=== PATIENT | female | born 1965 | race Caucasian/White ===

== ENCOUNTER 2017-01-18 10:05 | Emergency (ER) | payer MEDICAID, OTHER ==
[~2017-01-18] VITALS: Ht 167.6 cm; Wt 72.6 kg
--- NOTE | 2017-01-18 10:15 | NUR ---
PT CAME IN FOR DIZZINESS X 2 DAYS. TAKES AMOXICILLIN 500MG PO TID S/P DENTAL PROCEDURE. REPORTS FEELING DEHYDRATED. MD AT BS FOR EVAL. VSS. SAFETY AND COMFORT MEASURES PROVIDED. WILL MONITOR.
[2017-01-18] MEDS ORDERED: IV NS 0.9% 1,000 ML ONE (10:41)
[2017-01-18] MEDS ORDERED: IV SET PRIMARY 1 EA INFUS.SET MC ONE (10:41)
--- NOTE | 2017-01-18 10:50 | NUR ---
IV ACCESS STARTED, BLOOD DRAWN FOR LABS. PT MEDICATED ORDERED.
[2017-01-18 10:53] LABS: BASOPHILS % (AUTO) 0.7 % (0.0-2.0); EOSINOPHILS % (AUTO) 0.6 % (0.0-6.0); HEMATOCRIT 41 % (33-45); HEMOGLOBIN 13.5 g/dL (11.5-14.8); MEAN CORPUSCULAR HEMOGLOBIN 29 PG (26.0-33.0); MEAN CORPUSCULAR HGB CONC 33 g/dl (31.0-36.0); MEAN CORPUSCULAR VOLUME 86 fL (82-100); MONOCYTES # (AUTO) 0.4 /CMM (0.1-1.30); MONOCYTES % (AUTO) 7.4 % (2.0-12.0); NEUTROPHILS # (AUTO) 2.5 /CMM (1.8-8.9); NEUTROPHILS % (AUTO) 50.3 % (43.0-81.0); PLATELET COUNT (AUTO) 244 /CMM (150-450); RDW COEFFICIENT OF VARIATION 12.3 (11.5-15.0); WHITE BLOOD COUNT (AUTO) 4.9 K/uL (4.3-11.0)
--- NOTE | 2017-01-18 10:55 | NUR ---
URINE SAMPLE OBTAINED, SENT.
[2017-01-18 10:58] LABS: APPEARANCE,URINE Clear (CLEAR); BILIRUBIN,URINE Negative (NEGATIVE); BLOOD, URINE Negative Ery/uL (NEGATIVE); COLOR,URINE Yellow (YELLOW); KETONES,URINE Negative (NEGATIVE); LEUKOCYTE ESTERASE ,URINE Negative (NEGATIVE); NITRITE, URINE Negative (NEGATIVE); PROTEIN,URINE Negative (NEGATIVE); UGLUCOSE Negative (NEGATIVE); UROBILINOGEN,URINE 0.2 EU/dL (0.2)
[2017-01-18] MEDS ORDERED: IV NS 0.9% 1,000 ML BAG IV ONE (11:00)
[2017-01-18 11:06] LABS: CREATININE 0.9 mg/dL (0.6-1.3); POTASSIUM 4.5 mmol/L (3.5-5.1)
--- NOTE | 2017-01-18 11:45 | NUR ---
IV removed. Catheter intact and site benign. Pressure and 4x4 applied to site. No bleeding noted.
--- NOTE | 2017-01-18 11:56 | NUR ---
Patient discharged to home in stable condition. Written and verbal after care instructions given. Patient verbalizes understanding of instruction.
[2017-01-18 12:04] VITALS: BP 131/79
== END 2017-01-18 12:05 | disposition home or self-care (01) ==
LOC: ER 10:07
DX: E86.0 Dehydration (principal); R42 Dizziness and giddiness; Z88.1 Allergy status to other antibiotic agents; Z88.2 Allergy status to sulfonamides
CPT/HCPCS: 36415; 80048-TC; 81000-TC; 85025-TC; A4606; J7030; Z7610

== ENCOUNTER 2018-05-04 15:54 | Emergency (ER) | payer OTHER ==
[~2018-05-04] VITALS: Ht 167.6 cm; Wt 73.9 kg
[2018-05-04 16:10] VITALS: BP 125/92
[2018-05-04] MEDS ORDERED: FAMOTIDINE (20 MG) 20 MG TABLET ONE (16:30)
[2018-05-04] MEDS ORDERED: predniSONE 20 MG TABLET ONE (16:30)
[2018-05-04] MEDS ORDERED: predniSONE 20 MG TABLET PO ONE (16:30)
[2018-05-04] MEDS ORDERED: FAMOTIDINE (20 MG) 20 MG TABLET PO ONE (16:30)
== END 2018-05-04 16:46 | disposition home or self-care (01) ==
LOC: ER 15:55
DX: L23.5 Allergic contact dermatitis due to other chemical products (principal); B35.1 Tinea unguium; Z88.2 Allergy status to sulfonamides; Z88.1 Allergy status to other antibiotic agents
CPT/HCPCS: 99283; A4606; J7512; Z7610

== ENCOUNTER 2018-09-13 12:51 | Emergency (ER) | payer OTHER ==
[~2018-09-13] VITALS: Ht 167.6 cm; Wt 77.6 kg
[2018-09-13 13:04] VITALS: BP 137/91
--- NOTE | 2018-09-13 13:55 | NUR ---
RT PAGED FOR BREATHING TX
[2018-09-13] MEDS ORDERED: IPRATROPIUM NEB FS 0.5 MG/2.5 ML AMPUL.NEB NEB ONE (14:00)
[2018-09-13] MEDS ORDERED: ALBUTEROL FS 2.5 MG/3 ML VIAL.NEB NEB ONE (14:00)
[2018-09-13] MEDS ORDERED: IPRATROPIUM NEB FS 0.5 MG/2.5 ML AMPUL.NEB ONE (14:09)
[2018-09-13] MEDS ORDERED: ALBUTEROL FS 2.5 MG/3 ML VIAL.NEB ONE (14:09)
== END 2018-09-13 15:28 | disposition home or self-care (01) ==
LOC: ER 12:55
DX: J20.9 Acute bronchitis, unspecified (principal); Z88.2 Allergy status to sulfonamides; Z88.1 Allergy status to other antibiotic agents
CPT/HCPCS: 71045; 94640 ×2; 99284; A4606; Z7610

== ENCOUNTER 2018-11-22 08:07 | Emergency (ER) | payer OTHER ==
[~2018-11-22] VITALS: Ht 170.2 cm; Wt 77.1 kg
[2018-11-22] MEDS ORDERED: KETOROLAC TROMETHAMINE INJ 30 MG/ML VIAL ONE (08:23)
--- NOTE | 2018-11-22 08:32 | NUR ---
patient presented to the ER c/o cough with congestion x 2 days. On room air, breathing evenly and unlabored. Connected to the monitor and pulse ox. kept comfortable, will continue to monitor accordingly.
[2018-11-22 08:47] VITALS: BP 138/91
--- NOTE | 2018-11-22 08:48 | NUR ---
Patient discharged to home in stable condition. Written and verbal after care instructions given. Patient verbalizes understanding of instruction.
[2018-11-22] MEDS ORDERED: KETOROLAC TROMETHAMINE INJ 60 MG/2 ML VIAL IM ONE (09:00)
== END 2018-11-22 08:47 | disposition home or self-care (01) ==
LOC: ER 08:07
DX: J06.9 Acute upper respiratory infection, unspecified (principal); Z88.2 Allergy status to sulfonamides; Z88.1 Allergy status to other antibiotic agents
CPT/HCPCS: 96372; 99283; A4606; J1885

== ENCOUNTER 2022-02-08 10:39 | Emergency (ER) | payer OTHER ==
[~2022-02-08] VITALS: Ht 170.2 cm; Wt 72.1 kg
--- NOTE | 2022-02-08 10:48 | NUR ---
TO ER BED 3. BIB MOM C/O DIZZINESS SINCE 819 THIS MORNING. PT STATED THAT THIS HAPPENED EALRIER THIS WEEK AND STATED THAT SHE HAS NOT BEEN GETTING ENOUGH FLUID. PT STATED SHE DOES NOT FEEL DIZZY AT THE MOMENT AFTER LAYING DOWN. PT ATTCHED TO MONITOR. AWAITING MD NORTH.
--- NOTE | 2022-02-08 10:53 | NUR ---
DR NOLAN AT BEDSIDE FOR EVAL.
--- NOTE | 2022-02-08 11:12 | NUR ---
IV ESTBLISHED L AC 20G. LABS DRAWN AND COLLECTED AT BEDSIDE.
[2022-02-08] MEDS: IV NS 0.9% 1,000 ML BAG IV ONE (11:17)
[2022-02-08 11:27] LABS: BASOPHILS % (AUTO) 0.7 % (0.0-2.0); EOSINOPHILS % (AUTO) 0.5 % (0.0-6.0); HEMATOCRIT 38 % (33-45); LYMPHOCYTES # (AUTO) 1.4 K/uL (0.8-4.8); LYMPHOCYTES % (AUTO) 32.5 % (20.0-44.0); MEAN CORPUSCULAR HGB CONC 34 g/dl (31.0-36.0); MEAN CORPUSCULAR VOLUME 86 fL (82-100); MONOCYTES # (AUTO) 0.3 K/uL (0.1-1.30); MONOCYTES % (AUTO) 7.9 % (2.0-12.0); NEUTROPHILS # (AUTO) 2.6 K/uL (1.8-8.9); NEUTROPHILS % (AUTO) 58.4 % (43.0-81.0); PLATELET COUNT (AUTO) 219 K/uL (150-450); RED BLOOD CELL COUNT(AUTO) 4.42 MIL/uL (4.0-5.2); WHITE BLOOD COUNT (AUTO) 4.4 K/uL (4.3-11.0)
[2022-02-08 11:41] LABS: CALCIUM, SERUM 8.7 mg/dL (8.5-10.1); CARBON DIOXIDE 32 mmol/L (21-32); CHLORIDE 105 mmol/L (98-107); GLUCOSE 90 mg/dL (74-106); POTASSIUM 4.2 mmol/L (3.5-5.1); SODIUM SERUM 141 mmol/L (136-145); UREA NITROGEN, BLOOD 16 mg/dL (7-18)
[2022-02-08 12:40] VITALS: BP 130/88
--- NOTE | 2022-02-08 12:59 | NUR ---
IV removed. Catheter intact and site benign. Pressure and 4x4 applied to site. No bleeding noted.Patient discharged to home in stable condition. Written and verbal after care instructions given. Patient verbalizes understanding of instruction.
== END 2022-02-08 13:00 | disposition home or self-care (01) ==
LOC: ER 10:50
DX: R42 Dizziness and giddiness (principal); R55 Syncope and collapse; Z88.2 Allergy status to sulfonamides; Z88.1 Allergy status to other antibiotic agents; Z91.040 Latex allergy status
CPT/HCPCS: 36415; 71045; 80048; 82962; 84484; 85025; 93005; 96360; 99285; J7030

== ENCOUNTER 2022-12-21 17:04 | Emergency (ER) | payer OTHER ==
[~2022-12-21] VITALS: Ht 170.2 cm; Wt 74.8 kg
[2022-12-21 17:17] VITALS: BP 146/68
[2022-12-21] MEDS ORDERED: AZIT250T PO (17:28)
[2022-12-21] MEDS ORDERED: BENZ-13 PO (17:28)
[2022-12-21] MEDS ORDERED: IBUP-1953 PO (17:28)
[2022-12-21] MEDS ORDERED: PSEU120T83 PO (17:28)
--- NOTE | 2022-12-21 17:47 | NUR ---
Patient discharged to home in stable condition. Written and verbal after care instructions given. Patient verbalizes understanding of instruction.
== END 2022-12-21 17:49 | disposition home or self-care (01) ==
LOC: ER 17:11
DX: J06.9 Acute upper respiratory infection, unspecified (principal); H66.92 Otitis media, unspecified, left ear; Z88.1 Allergy status to other antibiotic agents; Z91.040 Latex allergy status

== ENCOUNTER 2023-02-02 16:02 | Emergency (ER) | payer OTHER ==
[~2023-02-02] VITALS: Ht 167.6 cm; Wt 74.8 kg
[~2023-02-02 16:02] MED LIST: AZIT250T PO; BENZ-13 PO; IBUP-1953 PO; PSEU120T83 PO
[2023-02-02 16:36] VITALS: BP 129/91
[2023-02-02] MEDS ORDERED: CLOT15CR27 TP (16:46)
== END 2023-02-02 16:51 | disposition home or self-care (01) ==
LOC: ER 16:03
DX: B35.1 Tinea unguium (principal); Z88.2 Allergy status to sulfonamides; Z88.8 Allergy status to other drugs, medicaments and biological substances

== ENCOUNTER 2023-09-06 10:23 | Emergency (ER) | payer OTHER ==
[~2023-09-06] VITALS: Ht 167.6 cm; Wt 77.1 kg
[~2023-09-06 10:23] MED LIST changes: +CLOT15CR27 TP
[2023-09-06 11:38] VITALS: BP 139/80; TEMP 98.2
[2023-09-06] MEDS ORDERED: GUAIFENESIN/D-METHORPHAN HB 5 ML UDC PO ONE (13:30)
[2023-09-06] MEDS ORDERED: ACETAMINOPHEN ES 500 MG TABLET PO ONE (13:30)
[2023-09-06] MEDS ORDERED: IBUPROFEN 400 MG TABLET PO ONE (13:30)
[2023-09-06] MEDS ORDERED: ACETAMINOPHEN ES 500 MG TABLET ONE (13:45)
[2023-09-06] MEDS ORDERED: IBUPROFEN 400 MG TABLET ONE (13:45)
[2023-09-06] MEDS ORDERED: GUAIFENESIN/D-METHORPHAN HB 5 ML UDC ONE (13:45)
[2023-09-06] MEDS ORDERED: GUAI1TBM19 PO (14:15)
[2023-09-06] MEDS ORDERED: AZIT500T PO (14:15)
[2023-09-06] MEDS ORDERED: BENZ-13 PO (14:15)
[2023-09-06 15:26] VITALS: O2SAT 98
== END 2023-09-06 14:21 | disposition home or self-care (01) ==
LOC: ER 10:26
DX: J06.9 Acute upper respiratory infection, unspecified (principal); R07.89 Other chest pain; Z79.899 Other long term (current) drug therapy; Z20.822 Contact with and (suspected) exposure to COVID-19; Z88.1 Allergy status to other antibiotic agents; Z88.2 Allergy status to sulfonamides
CPT/HCPCS: 99284; 71045; 87426; 87804 ×2; C9803

== ENCOUNTER 2024-03-03 19:58 | Emergency (ER) | payer OTHER ==
[~2024-03-03] VITALS: Ht 167.6 cm; Wt 74.8 kg
[~2024-03-03 19:58] MED LIST changes: +AZIT500T PO; +GUAI1TBM19 PO
[2024-03-03] MEDS ORDERED: CLIN300C12 PO (21:45)
[2024-03-03] MEDS ORDERED: HYDR-4209 PO (21:45)
[2024-03-03] MEDS ORDERED: KETO10TA2 PO (21:45)
[2024-03-03] MEDS ORDERED: oxyCODONE/APAP (5/325 MG) 1 UDTAB TABLET ONE (21:45)
[2024-03-03] MEDS ORDERED: BACI500P4 TP (21:45)
[2024-03-03] MEDS: oxyCODONE/APAP (5/325 MG) 1 UDTAB TABLET PO ONE (21:49)
[2024-03-03 21:57] VITALS: BP 134/78; TEMP 97.9; O2SAT 97
== END 2024-03-03 21:57 | disposition home or self-care (01) ==
LOC: ER 20:02
DX: T23.401A Corrosion of unspecified degree of right hand, unspecified site, initial encounter (principal); T23.402A Corrosion of unspecified degree of left hand, unspecified site, initial encounter; Z79.899 Other long term (current) drug therapy; Z88.2 Allergy status to sulfonamides; Y93.89 Activity, other specified; Y92.89 Other specified places as the place of occurrence of the external cause; Y99.8 Other external cause status

== ENCOUNTER 2025-08-26 16:36 | Emergency (ER) | payer OTHER ==
[~2025-08-26] VITALS: Ht 167.6 cm; Wt 86.2 kg
[~2025-08-26 16:36] MED LIST changes: +BACI500P4 TP; +CLIN300C12 PO; +HYDR-4209 PO; +KETO10TA2 PO
[2025-08-26] MEDS: IV NS 0.9% 1,000 ML BAG IV ONE (17:15)
[2025-08-26] MEDS: ONDANSETRON HCL/PF 4 MG/2 ML VIAL IVP ONE (17:16)
[2025-08-26] MEDS: KETOROLAC TROMETHAMINE 15 MG/ML VIAL IV ONE (17:17)
[2025-08-26] MEDS ORDERED: KETOROLAC TROMETHAMINE 15 MG/ML VIAL ONE (17:18)
[2025-08-26] MEDS ORDERED: ONDANSETRON HCL/PF 4 MG/2 ML VIAL ONE (17:19)
[2025-08-26 17:27] LABS: PLATELET COUNT (AUTO) 216 K/uL (150-450); RED BLOOD CELL COUNT(AUTO) 4.44 MIL/uL (4.0-5.2); RED CELL DISTRIBUTION WIDTH 13.0 % (11.5-15.0); WHITE BLOOD COUNT (AUTO) 4.2 K/uL (4.3-11.0)
[2025-08-26 17:32] LABS: CALCIUM, SERUM 8.3 mg/dL (8.5-10.1); CREATININE 0.9 mg/dL (0.6-1.3); SODIUM SERUM 141.0 mmol/L (136-145); UREA NITROGEN, BLOOD 12.0 mg/dL (7-18)
[2025-08-26 17:41] LABS: INR 1.01 (0.91-1.10)
[2025-08-26 19:00] VITALS: BP 137/79; TEMP 98.2; O2SAT 97
[2025-08-26] MEDS ORDERED: ONDA4TAB5 PO (19:00)
[2025-08-26] MEDS ORDERED: ACET-2605 PO (19:14)
== END 2025-08-26 19:23 | disposition home or self-care (01) ==
LOC: ER 16:45
DX: G43.909 Migraine, unspecified, not intractable, without status migrainosus (principal); Z79.1 Long term (current) use of non-steroidal anti-inflammatories (NSAID); Z88.1 Allergy status to other antibiotic agents; Z88.2 Allergy status to sulfonamides; Z91.040 Latex allergy status; Z86.2 Personal history of diseases of the blood and blood-forming organs and certain disorders involving the immune mechanism
CPT/HCPCS: 99285; 96374; 70450; 96375; 96361; 85025; 80048; 36415; 85730; J1885; J1200; J2405; J7030